=== PATIENT | male | born 1945 | race Caucasian/White ===

== ENCOUNTER → 2022-04-27 | Outpatient (CLI) | payer MEDICARE ==
--- NOTE | 2022-04-27 11:28 | NM ---
EXAMINATION TYPE: NM myocardial SPECT single DATE OF EXAM: 04/27/2022 COMPARISON: NONE HISTORY: Chest pain Following administration of 9.1 mCi Tc 99m Sestamibi. Images obtained 45 minutes post injection. FINDINGS: Exam was canceled by a dryerman/woman. Exam nondiagnostic. IMPRESSION: See above
== END | disposition home or self-care (01) ==
LOC: RADNMMAIN 08:27
PROVIDERS: ATTEND Family Medicine
DX: I48.19 Other persistent atrial fibrillation (principal)
CPT/HCPCS: 78451; A9500

== ENCOUNTER → 2024-02-28 | Outpatient (CLI) | payer MEDICARE ==
--- NOTE | 2024-02-29 05:15 | MR ---
EXAMINATION TYPE: MR hip LT wo con DATE OF EXAM: 02/28/2024 COMPARISON: None. HISTORY: Left hip pain Standard multiplanar, multisequence MRI departmental protocol Multiplanar, multisequence images of the pelvis focusing on the left hip were acquired without contra st. FINDINGS: Moderate axial joint space loss and acetabular spurring of both hips. Small to tiny hip kurt nt effusions bilaterally may be physiologic. Femoral head shapes are maintained bilaterally. No serpi ginous diminished T1 signal to suggest avascular necrosis. No suspicious increased T2 signal or osseo us edema. Muscle bulk is symmetric and maintained bilaterally. No brain hernia or adenopathy is seen. Sigmoid colonic diverticulosis is present. No free fluid in the pelvis. Urinary bladder shows mild co ncentric wall thickening. 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 [facility], , 02/29/2024 5:13 AM
== END | disposition home or self-care (01) ==
LOC: RADMRIMAIN 06:42
PROVIDERS: ATTEND Family Medicine
DX: M16.0 Bilateral primary osteoarthritis of hip (principal)